=== PATIENT | female | born 1980 | race Caucasian/White ===

== ENCOUNTER 2018-08-10 05:55 | Observation (INO) | payer BC ==
[2018-08-10] VITALS (7 sets, daily range): BP systolic 112–142; BP diastolic 60–85
[~2018-08-10] VITALS: Ht 175.3 cm; Wt 93.4 kg
[2018-08-10] MEDS ORDERED: MULT1TAB52 PO (06:17)
[2018-08-10] MEDS ORDERED: CALC600T4 PO (06:18)
[2018-08-10] MEDS ORDERED: IBUP200T44 PO (06:19)
[2018-08-10] MEDS ORDERED: TRAM50TA PO (06:20)
[2018-08-10] MEDS ORDERED: LIDOCAINE 1% PF 2 ML VIAL. ID PRN (07:00)
[2018-08-10] MEDS ORDERED: HYDROmorphone 2 MG/ML VIAL IV PRN (07:00)
[2018-08-10] MEDS ORDERED: ONDANSETRON PF 4 MG/2 ML VIAL. IV PRN ×2 (07:00→10:00)
[2018-08-10] MEDS ORDERED: fentaNYL PF VIAL 100 MCG/2 ML VIAL IV PRN ×2 (07:00)
[2018-08-10] MEDS ORDERED: PROCHLORPERAZINE 10 MG/2 ML VIAL. IV PRN ×2 (07:00→10:00)
[2018-08-10] MEDS ORDERED: IV RINGERS,LACTATED 1000ML 1,000 ML IV SCH (07:00)
[2018-08-10] MEDS ORDERED: MORPHINE SULFATE 4 MG/ML VIAL. IV PRN (07:00)
[2018-08-10] MEDS ORDERED: FAMOTIDINE 20 MG/2 ML VIAL ONE (07:08)
[2018-08-10] MEDS ORDERED: LIDOCAINE 2% PF 5 ML VIAL. ONE (07:08)
[2018-08-10] MEDS ORDERED: ROCURONIUM 50 MG/5 ML VIAL. ONE (07:08)
[2018-08-10] MEDS ORDERED: ONDANSETRON PF 4 MG/2 ML VIAL. ONE (07:08)
[2018-08-10] MEDS ORDERED: fentaNYL PF VIAL 100 MCG/2 ML VIAL ONE (07:08)
[2018-08-10] MEDS ORDERED: DEXAMETHASONE SOD PHOS 20 MG/5 ML VIAL. ONE (07:08)
[2018-08-10] MEDS ORDERED: MIDAZOLAM HCL/PF 2 MG/2 ML VIAL. ONE (07:08)
[2018-08-10] MEDS ORDERED: PROPOFOL 20 ML IV ONE (07:08)
[2018-08-10] MEDS ORDERED: METHYLENE BLUE 1% 10 ML VIAL. ONE (07:36)
[2018-08-10] MEDS ORDERED: SURGICEL HEMOSTAT 4X8 EACH. ONE (07:36)
[2018-08-10] MEDS ORDERED: BUPIVAC MPF-EPI 0.5%-1:200000 30 ML VIAL. ONE (07:36)
[2018-08-10] MEDS ORDERED: ESTROGENS, CONJ VAGINAL CREAM 30GM TUBE. ONE (07:36)
[2018-08-10] MEDS ORDERED: LIDOCAINE 1%/EPI 1:100,000 20 ML VIAL. ONE (07:36)
[2018-08-10 07:55] LABS: BASO % 1 % (0-3); EOS # 0.1 x10^3/uL (0.0-0.7); EOS % 3 % (0-3); HEMOGLOBIN 12.6 g/dL (12.0-15.5); LYMPH # 1.3 x10^3/uL (1.0-4.8); LYMPH % 31 % (24-48); MEAN CORPUSCULAR HEMOGLOBIN 29 pg (25-35); MEAN CORPUSCULAR HGB CONC 33 g/dL (31-37); MEAN CORPUSCULAR VOLUME 88 fL (79-100); MONO # 0.3 x10^3/uL (0.0-1.1); MONO % 7 % (0-9); NEUT # 2.5 x10^3uL (1.8-7.7); NEUT % 58 % (31-73); PLATELET COUNT 283 x10^3/uL (140-400); RED BLOOD COUNT 4.32 x10^6/uL (3.50-5.40); RED CELL DISTRIBUTION WIDTH 13.1 % (11.5-14.5); WHITE BLOOD COUNT 4.2 x10^3/uL (4.0-11.0)
[2018-08-10 07:56] LABS: U PREG PATIENT NEGATIVE (NEG)
[2018-08-10] MEDS ORDERED: ePHEDrine PF IN SALINE 50 MG/5 ML DISP.SYRIN IV ONE (08:13)
[2018-08-10] MEDS ORDERED: KETAMINE HCL IN NACL, ISO-OSM 50 MG/5 ML SYRINGE ONE (08:47)
[2018-08-10] MEDS ORDERED: GLYCOPYRROLATE 1 MG/5 ML VIAL. ONE (08:58)
[2018-08-10] MEDS ORDERED: NEOSTIGMINE 10 MG/10 ML VIAL. ONE (08:58)
[2018-08-10] MEDS ORDERED: diphenhydrAMINE 50 MG/ML VIAL ONE (09:28)
[2018-08-10] MEDS ORDERED: KETOROLAC 30 MG/ML INJ FOR OR. INJ ONE (09:28)
[2018-08-10] MEDS ORDERED: SEVOFLURANE 61 TO 120 MINUTES. IH ONE (09:35)
--- NOTE | 2018-08-10 09:46 | PDOC ---
BRIEF OPERATIVE NOTE Date: Aug 10, 2018 Pre-Op Diagnosis Adenocarcinoma In Situ Post-Op Diagnosis 1. Same 2. Bilateral Ovarian cysts Procedure Performed TLH & BSO Surgeon Dr. Brown Furnace Checker Julio Valera Anesthesia Type: General Blood Loss 200 ml Specimens Obtained cervix, uterus, bilateral fallopian tubes and ovaries Findings nml size uterus, brittany. ovarian cysts, Left pelvic sidewall adhesions Complications none Operative Note see dictation ALESSIA BROWN Jr, MD Aug 10, 2018 09:46
[2018-08-10] MEDS ORDERED: 0.9 % SODIUM CHLORIDE 10 ML DISP.SYRIN. IV PRN (10:00)
[2018-08-10] MEDS ORDERED: diphenhydrAMINE 50 MG/ML VIAL IV PRN (10:00)
[2018-08-10] MEDS ORDERED: ZOLPIDEM 5 MG TABLET. PO PRN (10:00)
[2018-08-10] MEDS ORDERED: SIMETHICONE 80 MG TAB.CHEW PO PRN (10:00)
[2018-08-10] MEDS ORDERED: DEXTROSE 50% 25 GM / 50ML DISP.SYRIN. IV PRN (10:00)
[2018-08-10] MEDS ORDERED: diphenhydrAMINE HCL 25 MG CAPSULE PO PRN (10:00)
[2018-08-10] MEDS ORDERED: KETOROLAC 30 MG/ML VIAL. IV PRN (10:00)
[2018-08-10] MEDS ORDERED: CALCIUM CARBONATE 500 MG TAB.CHEW PO PRN (10:00)
--- NOTE | 2018-08-10 10:31 | OP ---
DATE OF SURGERY: PREOPERATIVE DIAGNOSIS: Adenocarcinoma in situ of the cervix. POSTOPERATIVE DIAGNOSES: 1. Adenocarcinoma in situ of the cervix. 2. Bilateral ovarian cysts. PROCEDURE: TLH-BSO via da Jorge robot. SURGEON: Alessia Brown MD [employer]M MANAGER: Michael Valera. ANESTHESIA: GETA. ESTIMATED BLOOD LOSS: 100 mL. COMPLICATIONS: None. FINDINGS: Normal size uterus, bilateral ovarian cysts, left pelvic sidewall adhesions. SUMMARY: A 38-year-old female who had colposcopic biopsy, revealed adenocarcinoma in situ. Endometrial biopsy was negative. The patient was counseled on the need for TLH-BSO, risks, benefits and expectations and voiced clear understanding to proceed. DESCRIPTION OF PROCEDURE: The patient was taken to the surgery suite and placed in dorsal lithotomy position. She was prepped with Betadine solution for vaginal prep and ChloraPrep for abdominal prep. After adequate anesthesia, weighted speculum and curved [place] was placed vaginally. Anterior lip of the cervix was grasped with a single tooth tenaculum. The Salma uterine manipulator was then placed. The single tooth tenaculum and weighted speculum and curved Linda were then removed. Attention was now placed on abdomen. Small transverse skin incision was made just below the umbilicus with a scalpel. The Veress needle was then placed through the infraumbilical incision site. The abdomen was allowed to insufflate up to 1.5 liters CO2 gas. The Veress needle was then removed. An 8 mm camera port was then placed. The camera was positioned. The uterus was normal in size. There were dense adhesions on the left pelvic sidewall. The right ovary demonstrated multiple cysts. Incision was made in the right and left lower quadrant with a scalpel in which 8 mm trocars were placed under direct visualization. An accessory port was placed in the left upper quadrant of 5 mm size. The da Jorge robot was then docked in normal fashion. I then proceeded to the console. With the aid of vessel sealer and bipolar cautery, the right round ligament was coagulated and dissected. The right infundibulopelvic ligament was coagulated and dissected. The right broad ligament was coagulated and dissected down through including right uterine artery. Bladder flap was partially created using the vessel sealer and blunt dissections. The left infundibulopelvic ligament was isolated, coagulated and dissected. The left adnexa was then dissected free off the left pelvic sidewall using the vessel sealer as well as the cautery hook. There were dense adhesions, especially on the ovary to the left pelvic sidewall. As much of the ovary as possible was removed from the pelvic side norris after the left fallopian tube. The left broad ligament was coagulated and dissected with the vessel sealer down to and including the left uterine artery. The cervix was then circumscribed with the spatula at the level of the vaginal ring. The cervix, uterus, bilateral fallopian tubes and ovaries were then removed. The vaginal cuff was reapproximated using a V-Loc suture in a running fashion. Suction irrigation was utilized to verify good hemostasis. Small amount of normal saline was left in the posterior cul-de-sac. The trocars were then removed under direct visualization. The abdomen was allowed to deflate as much as possible along with mechanical manipulation. The robot was then undocked. The four skin incisions were reapproximated using 4-0 Vicryl suture in subcuticular manner. 0.5% lidocaine with epinephrine was injected at each incision site. Premarin vaginal packing was placed vaginally. The patient tolerated the procedure well and was sent to Recovery Room in stable condition. Sponge and needle counts correct x 3. ALESSIA BROWN MD DR: GEOVANI/huey JOB#: [id number] / [id number]
[2018-08-10] MEDS: GABAPENTIN 300 MG CAPSULE. PO SCH ×2 (14:01→21:53)
[2018-08-10] MEDS: oxyCODONE/APAP 5/325 1 TAB TABLET PO PRN ×2 (14:01→20:08)
[2018-08-11 05:23] LABS: BASO % 0 % (0-3); EOS % 0 % (0-3); HEMATOCRIT 32.4 % (36.0-47.0); HEMOGLOBIN 10.9 g/dL (12.0-15.5); LYMPH # 1.9 x10^3/uL (1.0-4.8); LYMPH % 17 % (24-48); MEAN CORPUSCULAR HEMOGLOBIN 29 pg (25-35); MEAN CORPUSCULAR HGB CONC 34 g/dL (31-37); MEAN CORPUSCULAR VOLUME 88 fL (79-100); MONO # 0.6 x10^3/uL (0.0-1.1); MONO % 6 % (0-9); NEUT # 8.5 x10^3uL (1.8-7.7); NEUT % 77 % (31-73); PLATELET COUNT 239 x10^3/uL (140-400); RED CELL DISTRIBUTION WIDTH 12.9 % (11.5-14.5); WHITE BLOOD COUNT 11.1 x10^3/uL (4.0-11.0)
[2018-08-11] MEDS: oxyCODONE/APAP 5/325 1 TAB TABLET PO PRN ×2 (06:08→10:35)
[2018-08-11] MEDS: GABAPENTIN 300 MG CAPSULE. PO SCH (06:09)
[2018-08-11 06:27] VITALS: BP 132/89
--- NOTE | 2018-08-11 07:55 | PDOC ---
SURGICAL PROGRESS NOTE Subjective PT. feeling well. No complaints. Vital Signs Vital Signs Date Time Temp Pulse Resp B/P (MAP) Pulse Ox O2 Delivery O2 Flow Rate FiO2 08/11/18 06:27 98.4 63 16 132/89 (103) 98.4 08/10/18 23:07 97 Room Air 08/10/18 10:15 8.0 I&O Intake and Output 08/11/18 07:01 Intake Total 4950 ml Output Total 5340 ml Balance -390 ml Intake Oral 2200 ml IV Total 1550 ml Other 1200 ml Output Urine Total 5140 ml Estimated Blood Loss 200 ml PATIENT HAS A NGO: No General: Alert, Oriented X3, Cooperative HEENT: Atraumatic Lungs: Clear to auscultation Heart: Regular rate Abdomen: Normal bowel sounds, Soft, No tenderness Psych/Mental Status: Mental status NL Labs Laboratory Tests Test 08/10/18 06:05 08/10/18 06:16 08/11/18 04:50 White Blood Count 4.2 x10^3/uL (4.0-11.0) 11.1 x10^3/uL (4.0-11.0) Red Blood Count 4.32 x10^6/uL (3.50-5.40) 3.70 x10^6/uL (3.50-5.40) Hemoglobin 12.6 g/dL (12.0-15.5) 10.9 g/dL (12.0-15.5) Hematocrit 38.0 % (36.0-47.0) 32.4 % (36.0-47.0) Mean Corpuscular Volume 88 fL (79-100) 88 fL (79-100) Mean Corpuscular Hemoglobin 29 pg (25-35) 29 pg (25-35) Mean Corpuscular Hemoglobin Concent 33 g/dL (31-37) 34 g/dL (31-37) Red Cell Distribution Width 13.1 % (11.5-14.5) 12.9 % (11.5-14.5) Platelet Count 283 x10^3/uL (140-400) 239 x10^3/uL (140-400) Neutrophils (%) (Auto) 58 % (31-73) 77 % (31-73) Lymphocytes (%) (Auto) 31 % (24-48) 17 % (24-48) Monocytes (%) (Auto) 7 % (0-9) 6 % (0-9) Eosinophils (%) (Auto) 3 % (0-3) 0 % (0-3) Basophils (%) (Auto) 1 % (0-3) 0 % (0-3) Neutrophils # (Auto) 2.5 x10^3uL (1.8-7.7) 8.5 x10^3uL (1.8-7.7) Lymphocytes # (Auto) 1.3 x10^3/uL (1.0-4.8) 1.9 x10^3/uL (1.0-4.8) Monocytes # (Auto) 0.3 x10^3/uL (0.0-1.1) 0.6 x10^3/uL (0.0-1.1) Eosinophils # (Auto) 0.1 x10^3/uL (0.0-0.7) 0.0 x10^3/uL (0.0-0.7) Basophils # (Auto) 0.0 x10^3/uL (0.0-0.2) 0.0 x10^3/uL (0.0-0.2) Urine Test Negative (NEG) Laboratory Tests Test 08/11/18 04:50 White Blood Count 11.1 x10^3/uL (4.0-11.0) Red Blood Count 3.70 x10^6/uL (3.50-5.40) Hemoglobin 10.9 g/dL (12.0-15.5) Hematocrit 32.4 % (36.0-47.0) Mean Corpuscular Volume 88 fL (79-100) Mean Corpuscular Hemoglobin 29 pg (25-35) Mean Corpuscular Hemoglobin Concent 34 g/dL (31-37) Red Cell Distribution Width 12.9 % (11.5-14.5) Platelet Count 239 x10^3/uL (140-400) Neutrophils (%) (Auto) 77 % (31-73) Lymphocytes (%) (Auto) 17 % (24-48) Monocytes (%) (Auto) 6 % (0-9) Eosinophils (%) (Auto) 0 % (0-3) Basophils (%) (Auto) 0 % (0-3) Neutrophils # (Auto) 8.5 x10^3uL (1.8-7.7) Lymphocytes # (Auto) 1.9 x10^3/uL (1.0-4.8) Monocytes # (Auto) 0.6 x10^3/uL (0.0-1.1) Eosinophils # (Auto) 0.0 x10^3/uL (0.0-0.7) Basophils # (Auto) 0.0 x10^3/uL (0.0-0.2) Assessment/Plan A: POD#1 s/p TLH & BSO P: D/c home. ALESSIA BENAVIDES Jr, MD Aug 11, 2018 07:54
--- NOTE | 2018-08-11 07:55 | DISCH ---
DISCHARGE INSTRUCTIONS Condition on Discharge Condition on Discharge: Stable Activity After Discharge Activity Instructions for Disc: Activity as tolerated Lifting Instructions after Dis: No heavy lifting Driving Instructions after Dis: No driving for 2 weeks Diet after Discharge Diet after Discharge: Regular Contacting the DRArnold after DC Call your doctor for: Concerns you may have Follow-Up Follow up with: Dr. Brown in 2 wks ALESSIA BROWN Jr, MD Aug 11, 2018 07:55
[2018-08-11] MEDS ORDERED: OXYC1TAB15 PO (07:59)
[2018-08-11] MEDS ORDERED: GABA300C18 PO (07:59)
[2018-08-11 10:30] VITALS: BP 131/86
--- NOTE | 2018-08-16 09:12 | PATHOLOGY ---
[facility] Accession Number: [id number] . 01 Material submitted: . CERVIX, UTERUS, BILATERAL OVARIES AND TUBES . 01 Clinical history: . Cervical cancer. . 02 Diagnosis: Uterus and attached bilateral fallopian tubes and ovaries, total hysterectomy with bilateral salpingo-oophorectomy: - FOCALLY INVASIVE MODERATELY-DIFFERENTIATED ENDOCERVICAL ADENOCARCINOMA, MAXIMUM DEPTH OF INVASION 4 MM, ARISING WITHIN A BACKGROUND OF EXTENSIVE ENDOCERVICAL ADENOCARCINOMA IN SITU INVOLVING THE 9-3:00 REGION OF ENDOCERVIX. - No lymphovascular tumor invasion identified. - Ectocervical and paracervical margins of excision negative for tumor. - Chronic cervicitis with focal squamous metaplasia. - Proliferative endometrium. 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 - Congestion of bilateral fallopian tubes. - Cystic follicles and small simple serous cysts of right ovary. - Focal endometriosis and few small cystic follicles of left ovary. (JPM:pit/mml 08/14/2018) . . SURGICAL PATHOLOGY CANCER CASE SUMMARY . Protocol posting date: February 2018 . UTERINE CERVIX: Resection . Procedure ___ Total hysterectomy and bilateral salpingo-oophorectomy . + Hysterectomy Type + ___ Laparoscopic, robotic-assisted . Tumor Size Greatest dimension (centimeters): 1.5 cm . + Tumor Site + ___ Left superior (anterior) quadrant (12 to 3 o'clock) + ___ Right superior (anterior) quadrant (9 to 12 o'clock) . Histologic Type ___ Endocervical adenocarcinoma, usual type . Histologic Grade ___ G2: Moderately differentiated . Stromal Invasion . Depth of stromal invasion (millimeters): 4 mm . Horizontal extent longitudinal/length (millimeters): 15 mm . Margins . Ectocervical Margin (select all that apply)# ___ Uninvolved by invasive carcinoma + Distance of invasive carcinoma from margin (millimeters): 11 mm + Specify location: 9-12 o'clock . Radial (Circumferential) Margin ___ Uninvolved by invasive carcinoma + Distance of invasive carcinoma from margin (millimeters): 6 mm . Lymphovascular Invasion ___ Not identified . Regional Lymph Nodes ___ No lymph nodes submitted or found . Pathologic Stage Classification (pTNM, AJCC 8th Edition) . Primary Tumor (pT) ___ pT1b: Clinically visible lesion confined to the cervix or microscopic lesion greater than T1a2/IA2. Includes all macroscopically visible lesions, even those with superficial invasion. . Regional Lymph Nodes (pN) (select all that apply) Category (pN) ___ pNX: Regional lymph nodes cannot be assessed . + FIGO Stage (2015 FIGO Cancer Report) + ___ IB: Clinical lesions confined to the cervix, or preclinical lesions greater than stage IA. . + Additional Pathologic Findings + ___ None identified . (JPM:renata; 08/15/2018) QTP/08/16/2018 . 02 Comment: The case is also examined by Dr. Gonzalez, who has a specialty interest in [employer] pathology. He concurs with the diagnosis. . (JPM:mml; 08/14/2018) . 02 Electronically signed: . Abdifatah Donovan MD, Pathologist NPI- [id number] . 01 Gross description: . Received in formalin labeled "[place], [place], cervix, uterus, bilateral ovaries and tubes" is a hysterectomy specimen consisting of a uterus with attached fallopian tubes and attached ovaries. Vaginal cuff is not present. Parametrium is not present. The uterus weighs 84 g and measures 7.5 cm from fundus to cervix, 5.6 cm from cornu to cornu, and 4.1 cm from anterior to posterior. The serosa is pink zavala and smooth. The cervical os is ovoid and measures 0.7 x 0.6 cm, and the ectocervix is pink-zavala and glistening. The cervix is notable for a roughened zavala-yellow possible lesion or biopsy site on the anterior half, extending from 9:00 to 3:00, and measuring 1.5 x 1.1 x 0.5 cm. This possible lesion is located to the ectocervical resection margin as follows: 1.1 cm to 12:00, 1.3 cm to 3:00, 2.1 cm to 6:00, and 1.5 cm to 9:00. The possible lesion most closely approaches the margin at 11:00-12:00. The ectocervical resection margin is inked blue and the deep cervical margin is inked black. . The cervix is probed patent and the uterus is opened to reveal a 3.0 x 2.2 cm endometrial cavity and a 2.1 x 0.9 cm endocervical canal. The average endometrial thickness measures 0.4 cm and the average myometrial thickness measures 1.8 cm. The uterus is serially sectioned to reveal no leiomyomata. . The right fimbriated fallopian tube measures 5.5 cm in length and 1.0 cm in diameter. The left fimbriated fallopian tube measures 6.0 cm in length and 0.9 cm in diameter. The serosal surfaces are pink zavala and smooth and the fallopian tubes are serially sectioned to reveal pinpoint lumens. The right ovary weighs 7 g and measures 3.2 x 3.0 x 1.8 cm. The ovary has a zavala-white cerebriform external surface and is serially sectioned to reveal zavala-white ovarian parenchyma with multiple thin-walled cysts ranging from 0.3-1.0 cm in greatest dimension. . The tissue attached to the left fallopian tube and left cornu of the uterus is red-brown, ragged, and irregular, and possibly consistent with left ovary or left mesosalpinx. This tissue weighs 5 g and measures 3.6 x 2.2 x 2.0 cm. . Lacemaker sections are submitted as follows: A1 anterior lower uterine segment A2 posterior lower uterine segment A3 anterior endomyometrium A4 posterior endomyometrium A5 b2b sales representative right fallopian tube A6 b2b sales representative left fallopian tube A7 b2b sales representative right ovary A8-A11 entire left possible ovary or mesosalpinx A12-A14 12:00 to 3:00 cervix A15-A17 3:00 to 6:00 cervix A18-A21 6:00 to 9:00 cervix A22-A24 9:00 to 12:00 cervix ([facility] [place]; 08/10/2018) SYC/SYC . 02 Microscopic: . . . 02 Pathologist provided ICD-10: C53.9, D06.9, D25.1, N72, N80.1, N83.201 . 02 CPT . 284797 Specimen Comment: A courtesy copy of this report has been sent to Specimen Comment: [phone], . Specimen Comment: Report sent to / DR BARON Specimen Comment: A duplicate report has been generated due to demographic updates. Performed at: 01 [facility] [address] [facility] [address], [place] [id number] MD Raoul Mejía MD Phone: [phone] Performed at: 02 [facility] [address] [place], [place] [id number] MD Abdifatah Donovan MD Phone: [phone]
== END 2018-08-11 11:10 | disposition home or self-care (01) ==
LOC: SURG 05:55 → 3 NORTH 09:46
PROVIDERS: ADMIT Obstetrics & Gynecology; ATTEND Obstetrics & Gynecology
DX: D06.9 Carcinoma in situ of cervix, unspecified (principal); N83.201 Unspecified ovarian cyst, right side; N83.202 Unspecified ovarian cyst, left side; N73.6 Female pelvic peritoneal adhesions (postinfective)
CPT/HCPCS: 36415; 58571; 81025; 85025; 86850; 86900; 86901; A7015; G0378; G0379; J0696; J1100; J1200; J1885; J2001; J2250; J2405; J2704; J2710; J3010; J3490; J7030; J7120; S2900; 88309; Q9968